=== PATIENT | female | born 1985 | race Hispanic/Latino ===

== ENCOUNTER 2020-08-20 06:35 | Day surgery (SDC) | payer OTHER ==
[2020-08-18 12:59] LABS: EOSINOPHILS % (AUTO) 1.6 % (0.0-8.0); HEMATOCRIT 36.9 % (36-48); LYMPHOCYTES % (AUTO) 21.3 % (21.0-51.0); MEAN CORPUSCULAR HEMOGLOBIN 27.4 pg (27.0-33.0); MEAN CORPUSCULAR HGB CONC 33.1 g/dL (32.0-36.0); MEAN CORPUSCULAR VOLUME 82.7 fL (79-99); MONOCYTES % (AUTO) 7.4 % (3.0-13.0); NEUTROPHILS % (AUTO) 68.2 % (40.0-77.0); PLATELET COUNT (AUTO) 359 K/uL (130-400); RED BLOOD CELL COUNT(AUTO) 4.46 MIL/uL (4.00-5.50); RED CELL DISTRIBUTION WIDTH 13.2 % (11.0-15.5); WHITE BLOOD COUNT (AUTO) 8.3 K/uL (4.8-10.8)
[2020-08-18 13:10] LABS: CREATININE 0.7 mg/dL (0.5-1.5); POTASSIUM 4.2 mmol/L (3.5-5.1)
[2020-08-18 13:14] LABS: INR 0.97 (0.85-1.15); PROTHROMBIN TIME 10.6 SEC (9.6-11.6)
[2020-08-18 13:15] LABS: PARTIAL THROMBOPLASTIN TIME 26.3 SEC (26.3-35.5)
[2020-08-20] VITALS (10 sets, daily range): BP systolic 106–129; BP diastolic 58–72
[~2020-08-20] VITALS: Ht 152.4 cm; Wt 91.6 kg
[~2020-08-20 06:35] MED LIST: ESTRADIOL PO; VERA240T14 PO
[2020-08-20] MEDS ORDERED: SODIUM CHLORIDE 0.9% 1000ML 1,000 ML IV ONE (07:52)
[2020-08-20] MEDS ORDERED: HEPARIN SODIUM 1000UNIT/ML 10ML VIAL ONE (08:02)
[2020-08-20] MEDS ORDERED: LIDOCAINE HCL 2% 20ML ONE ×2 (08:02→10:48)
[2020-08-20] MEDS ORDERED: MIDAZOLAM HCL 1 MG/ML 2ML VIAL ONE ×3 (08:02→11:45)
[2020-08-20] MEDS ORDERED: MEPERIDINE-PF 25 MG/ML SYG ONE ×3 (08:02→11:46)
[2020-08-20] MEDS ORDERED: ISOPROTERENOL HCL 0.2 MG/ML AMP/VIAL/BAG ONE ×2 (10:18→11:02)
[2020-08-20] MEDS ORDERED: FLEC50TA3 PO (12:31)
== END 2020-08-20 16:20 | disposition home or self-care (01) ==
LOC: DAH 06:35
PROVIDERS: ATTEND Internal Medicine Cardiovascular Disease
DX: I47.1 Supraventricular tachycardia (principal); Z79.01 Long term (current) use of anticoagulants; Z79.899 Other long term (current) drug therapy
CPT/HCPCS: 36415; 80048; 81025; 85025; 85610; 85730; 93005; 93613; 93621; 93623; 93653; A4215; A4216; A4221; A4222; A4223 ×3; A4606; A4649 ×2; A4663; C1730 ×4; C1731; C1732; C1894 ×5; J1644 ×3; J2175 ×3; J2250 ×3; J3490 ×4; J7030; 99156; 99157

== ENCOUNTER 2020-08-23 19:37 | Emergency (ER) | payer OTHER ==
[~2020-08-23 19:37] MED LIST changes: +FLEC50TA3 PO; -VERA240T14 PO
== END 2020-08-23 20:57 | disposition home or self-care (01) ==
LOC: EDH 19:37
DX: R00.2 Palpitations (principal); K21.9 Gastro-esophageal reflux disease without esophagitis
CPT/HCPCS: 71045; 93005